=== PATIENT | male | born 1970 | race Caucasian/White ===

== ENCOUNTER → 2017-02-09 | Outpatient (CLI) | payer OTHER ==
[~2017-02-09] MED LIST: MOTRIN400 MG PO; NORCO 5/3251 TABLET PO; Naprosyn PO; PRILOSEC10 MG PO; PRILOSEC20 MG PO; PRINIVIL5 MG PO; SKELAXIN400 M1 PO; Skelaxin PO; ZESTRIL,PRINIVIL5 MG PO; ZYRTEC10 M3 PO; ZyrTEC PO
== END | disposition home or self-care (01) ==
LOC: RAD 14:00
DX: M47.896 Other spondylosis, lumbar region (principal); M51.26 Other intervertebral disc displacement, lumbar region; M48.06 Spinal stenosis, lumbar region
CPT/HCPCS: 72148

== ENCOUNTER 2017-08-04 10:31 | Day surgery (SDC) | payer OTHER ==
[~2017-08-04] VITALS: Ht 185.4 cm; Wt 118.2 kg
[~2017-08-04 10:31] MED LIST changes: +OXYCODONE-APAP1 EACH PO; -PRILOSEC10 MG PO; +TYLENOL EXTRA500 MG PO
[2017-08-04 12:01] VITALS: BP 120/91
[2017-08-04 12:10] VITALS: BP 120/91
[2017-08-04 17:05] VITALS: BP 122/73
[2017-08-04 18:05] VITALS: BP 107/58
[2017-08-04 18:37] VITALS: BP 110/62
== END 2017-08-04 18:37 | disposition home or self-care (01) ==
LOC: SDC 10:31
DX: M51.16 Intervertebral disc disorders with radiculopathy, lumbar region (principal); M48.062 Spinal stenosis, lumbar region with neurogenic claudication; G89.29 Other chronic pain; I10 Essential (primary) hypertension; K21.9 Gastro-esophageal reflux disease without esophagitis; E78.1 Pure hyperglyceridemia
CPT/HCPCS: 72020; 76000; J0131; J0690; J1100; J1170; J2250; J2405; J2550; J2765; J2930; J3010; J7120; Q0175; S0020